=== PATIENT | female | born 1945 | race Caucasian/White ===

== ENCOUNTER 2020-10-21 18:02 | Emergency (ER) | payer OTHER ==
[~2020-10-21 18:02] MED LIST: ASPIR-LOW81 MG PO; BACTRIM DS TAB1 EACH PO; COUMADIN 2.5MG2.5 MG PO; COUMADIN2 MG PO; COUMADIN2.5 MG PO; ESTRACE42.5 GM VG; FERROUS SULFAT325 MG PO; GABAPENTIN400 MG PO; K-DUR TAB 10 M10 MEQ PO; KLOR-CON 1010 MEQ PO; METHENAMINE HIPP1 GM PO; NORCO 10-325 T1 EACH PO; NORCO 7.5-3251 EACH PO; NORVASC 5 MG TAB5 MG PO; OMEGA 3 1,0001 EACH PO; OMEPRAZOLE20 M1 PO; PRAVASTATIN SOD40 MG PO; ROPINIROLE HCL0.5 MG PO; SOMA350 MG PO; SYNTHROID88 MCG PO; TOPROL XL50 MG PO; UREX1 GM PO; VIBRAMYCIN100 MG PO; VITAMIN C 500500 MG PO; VITAMIN D250000 UNIT PO; Voltaren Gel 1 % TOP; WARFARIN SODIUM1 MG PO
[2020-10-21] MEDS ORDERED: HYDROCODON-ACE1 EAC4 PO (20:15)
== END 2020-10-21 20:55 | disposition home or self-care (01) ==
LOC: ER1 18:02
DX: S50.01XA Contusion of right elbow, initial encounter (principal); S40.011A Contusion of right shoulder, initial encounter; W19.XXXA Unspecified fall, initial encounter
CPT/HCPCS: 70450; 73030; 73080; 99284

== ENCOUNTER 2021-04-01 20:28 | Emergency (ER) | payer OTHER ==
[~2021-04-01 20:28] MED LIST changes: +HYDROCODON-ACE1 EAC4 PO
[2021-04-01 21:30] LABS: HEMOGLOBIN 12.1 gm/dl (12.3-15.3); RED BLOOD COUNT 4.32 M/UL (4.00-5.10); WHITE BLOOD COUNT 8.6 K/UL (4.5-11.0)
== END 2021-04-02 00:30 | disposition home or self-care (01) ==
LOC: ER1 20:28
PROVIDERS: Family Medicine; Surgery
PROC: 0DC18ZZ Extirpation of Matter from Upper Esophagus, Via Natural or Artificial Opening Endoscopic (ICD-10-PCS; principal; 2021-04-01 22:44)
DX: T18.128A Food in esophagus causing other injury, initial encounter (principal); K22.2 Esophageal obstruction; K21.9 Gastro-esophageal reflux disease without esophagitis; I10 Essential (primary) hypertension; E78.5 Hyperlipidemia, unspecified; E07.9 Disorder of thyroid, unspecified; R94.31 Abnormal electrocardiogram [ECG] [EKG]; Z20.822 Contact with and (suspected) exposure to COVID-19; Z95.0 Presence of cardiac pacemaker; Z88.1 Allergy status to other antibiotic agents; X58.XXXA Exposure to other specified factors, initial encounter
CPT/HCPCS: 80048; 85025; 93005; 99283; J2001; J2704; J7040; U0002

== ENCOUNTER 2021-11-03 21:58 | Emergency (ER) | payer OTHER | END 2021-11-04 01:30 | disposition home or self-care (01) | LOC: ER1 21:58 | PROVIDERS: Surgery | PROC: 0DC18ZZ Extirpation of Matter from Upper Esophagus, Via Natural or Artificial Opening Endoscopic (ICD-10-PCS; principal; 2021-11-03 23:20) | DX: T18.128A Food in esophagus causing other injury, initial encounter (principal); I10 Essential (primary) hypertension; I48.91 Unspecified atrial fibrillation; E03.9 Hypothyroidism, unspecified; Z79.01 Long term (current) use of anticoagulants; Z79.890 Hormone replacement therapy; Z79.899 Other long term (current) drug therapy; Z85.850 Personal history of malignant neoplasm of thyroid; Z88.1 Allergy status to other antibiotic agents; Z95.0 Presence of cardiac pacemaker; X58.XXXA Exposure to other specified factors, initial encounter | CPT/HCPCS: 99283; J2704; J3010 ==